=== PATIENT | female | born 2000 | race Caucasian/White ===

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

== ENCOUNTER → 2018-01-12 | Outpatient (CLI) | payer OTHER | LOC: M RAD 09:31 | DX: H53.2 Diplopia (principal); R51 Headache; R20.0 Anesthesia of skin | CPT/HCPCS: 70551 ==

== ENCOUNTER 2018-02-18 13:27 | Emergency (ER) | payer OTHER ==
[2018-02-18] MEDS: PERCOCET 5MG/325MG TAB PO (16:26)
== END 2018-02-18 17:16 | disposition home or self-care (01) ==
LOC: M ED 13:27
DX: S13.9XXA Sprain of joints and ligaments of unspecified parts of neck, initial encounter (principal); S76.011A Strain of muscle, fascia and tendon of right hip, initial encounter; S06.0X9A Concussion with loss of consciousness of unspecified duration, initial encounter; S20.219A Contusion of unspecified front wall of thorax, initial encounter; S70.12XA Contusion of left thigh, initial encounter; S00.81XA Abrasion of other part of head, initial encounter; V86.65XA Passenger of 3- or 4- wheeled all-terrain vehicle (ATV) injured in nontraffic accident, initial encounter; Y92.89 Other specified places as the place of occurrence of the external cause; F41.9 Anxiety disorder, unspecified; Z79.899 Other long term (current) drug therapy; Z79.1 Long term (current) use of non-steroidal anti-inflammatories (NSAID)
CPT/HCPCS: 71111

== ENCOUNTER → 2019-04-09 | Outpatient (REF) | payer OTHER ==
[~2019-04-09] MED LIST changes: +DICL75TA PO; +IBUP-1022 PO; +NAPR-885 PO; +ROBA500T PO; +TYLE325T5 PO
[2019-04-09 16:04] LABS: CHLAMYDIA DNA AMPLIFICATION NEGATIVE (NEGATIVE); GC DNA AMPLIFICATION NEGATIVE (NEGATIVE)
== END ==
LOC: M LAB REF 13:36
PROVIDERS: ATTEND Advanced Practice Midwife
DX: N94.10 Unspecified dyspareunia (principal)

== ENCOUNTER → 2019-04-14 | Outpatient (CLI) | payer OTHER ==
--- NOTE | 2019-04-14 08:45 | REP ---
Clinical: Dyspareunia . Technique: Transabdominal pelvic ultrasound followed by transvaginal examination for better evaluation of the endometrium and adnexa with color Doppler evaluation of the ovaries. Findings: Bladder is unremarkable and measures 5.8 x 3.4 x 4.3 cm . Normal anteverted uterus measures 8.1 x 3.6 x 4.5 cm . The endometrial complex measures 9.7 mm thickness. No discrete uterine or endometrial abnormalities are appreciated. Bilateral ovaries are normal in appearance and vascularity without evidence for torsion. Right ovary measures 3.7 x 2.3 x 2.7 cm with 1.3 cm presumed physiologic cyst ; R I = 0.5 a . Left ovary measures 3.2 x 2.0 x 2.0 cm ; R I = 0.65 . Small amount of free fluid in the posterior cul-de-sac is nonspecific and likely physiologic . Impression: 1. Involuting cyst / follicle in the right ovary. 2. Otherwise normal pelvic ultrasound. Electronically Signed by Mark Bose MD 04/14/2019 08:36 A
== END ==
LOC: M RAD 07:41
PROVIDERS: ATTEND Advanced Practice Midwife
DX: N83.201 Unspecified ovarian cyst, right side (principal); N94.10 Unspecified dyspareunia

== ENCOUNTER → 2019-05-28 | Outpatient (REF) | payer OTHER | LOC: M SFHCWAGY 10:24 | PROVIDERS: ATTEND Advanced Practice Midwife | DX: R10.2 Pelvic and perineal pain (principal) ==

== ENCOUNTER → 2023-03-08 | Outpatient (CLI) | payer OTHER ==
[~2023-03-08] MED LIST changes: +ESCI10TA16 PO; -ESCI10TA2 PO
== END ==
LOC: M WHC 06:58
PROVIDERS: ATTEND Nurse Practitioner Family
DX: N94.10 Unspecified dyspareunia (principal); N94.9 Unspecified condition associated with female genital organs and menstrual cycle; N63.20 Unspecified lump in the left breast, unspecified quadrant

== ENCOUNTER → 2023-05-09 | Outpatient (REF) | payer OTHER, BC | LOC: M SFHCWAGY 17:11 | PROVIDERS: ATTEND Nurse Practitioner Family | DX: N89.8 Other specified noninflammatory disorders of vagina (principal); Z12.4 Encounter for screening for malignant neoplasm of cervix ==